=== PATIENT | female | born 1995 ===

== ENCOUNTER 2022-11-11 18:17 | Inpatient (IN) ==
[2022-11-11] MEDS ORDERED: ACETAMINOPHEN 325 MG TAB PO PRN (19:10)
[2022-11-11] MEDS ORDERED: ONDANSETRON 4 MG OD TAB PO PRN (19:10)
[2022-11-11] MEDS ORDERED: LACTATED RINGER'S 1,000 ML IV ONE (19:18)
[2022-11-11 19:46] LABS: Basophils # (auto) 0.05 K/uL (0-0.2); Basophils % (auto) 0.3 %; Eosinophils % (auto) 1.3 %; Hematocrit (blood only) 37.9 % (37.0-47.0); Hemoglobin 12.6 g/dl (12.0-16.0); Immature Granulocytes # (auto) 0.17 K/uL (0.01-0.20); Immature Granulocytes % (auto) 1.1 %; Lymphocytes % (auto) 17.3 %; Mean Corpuscular Hemoglobin 28.6 pg (25.0-34.0); Mean Corpuscular Hgb Conc 33.2 g/dL (32.0-36.0); Mean Corpuscular Volume 86.1 fL (80.0-100.0); Mean Platelet Volume 10.7 fL (9.4-12.4); Monocytes # (auto) 1.04 K/uL (0.11-0.59); Monocytes % (auto) 6.7 %; Neutrophils # (auto) 11.47 K/uL (1.40-6.50); Neutrophils % (auto) 73.3 %; Platelet Count 280 K/uL (130-400); RDW Coefficient of Variation 13.2 % (11.5-14.5); RDW Standard Deviation 41.6 fL (36.4-46.3); White Blood Count 15.63 K/ul (4.8-10.8)
[2022-11-11 20:14] LABS: Alanine Aminotransferase 19 U/L (7-52); Albumin Level 3.5 gm/dl (3.4-5.0); Alkaline Phosphatase 166 U/L (34-104); Anion Gap 9 (3-11); Aspartate Aminotransferase 18 U/L (13-39); BUN Creatinine Ratio 16.7 (10-20); Bilirubin,Total 0.8 mg/dl (0.2-1.0); Blood Urea Nitrogen 8 mg/dl (6-23); Calcium 9.1 mg/dl (8.5-10.1); Carbon Dioxide 21 mmol/L (21-32); Chloride 108 mmol/L (98-107); Creatinine Clr Calc Pharmacy 222.6 ml/min; Est GFR (African American) > 150.0 ml/min; Est GFR (Non-African American) 136.3 ml/min; Globulin 3.5 gm/dl (2.5-4.0); Glucose 86 mg/dl (70-99(Fasting)); Potassium 3.8 mmol/L (3.5-5.1); Sodium 138 mmol/L (136-145)
[2022-11-11] MEDS ORDERED: ONDANSETRON INJ 2 MG/ML 2 ML VIAL IV PRN (20:25)
--- NOTE | 2022-11-11 20:59 | Obstetrical Progress Note ---
Date of Service November 11, 2022 Subjective Patient is reevaluated. She received IV fluids, IV Zofran and p.o. Tylenol. Nausea is gone but she still has back pain off and on. She has a history of fast labors. Vital signs stable afebrile, Labs within normal limits, GBS was sent and pending, heart rate category 1, [place] showing contractions every 5 to 10 minutes, Vaginal exam, cervix is changed to 5 cm, 70% effaced, -2, tight bulging bag, Plan to admit, monitor, ambulate, and anticipate . Results & Data ([facility]) Vital Signs (Past 12 Hours) Vital Signs Temp Resp O2 Del Method 11/11/22 19:09 36.5 C 18 Room Air
--- NOTE | 2022-11-11 21:03 | History & Physical Report ---
Date of Service November 11, 2022 Assessment & Plan (1) Back pain affecting in third trimester: Plan: 27-year-old -1-1-2 at 39 weeks and 4 days of gestation with back pain, discomfort of , nausea vomiting and diarrhea since this morning, limited care at resource answer with one-time visit at [facility], Vital signs stable afebrile, GBS unknown, collected, Irregular uterine contractions most likely from dehydration, Obtain records with EDC of 11/14 and normal labs, Plan to observe, monitor, labs, IV fluids, Tylenol and Zofran and reevaluate, I offered her induction of labor tomorrow or 11/13 due to no nursing team a theresa tsang, Patient wants to think about it and decide. (2) Nausea and vomiting during : (3) Discomfort during : History of Present Illness Primary Care Provider: NO PCP Patient is a 27-year-old -1-1-2 at 39 weeks and 4 days of gestation who presented to ER for back pain, nausea vomiting and discomfort in abdomen and sent up here to labor and delivery. She is not from here, she went to resource center 3 times during this and she has not decided where to deliver this baby. She was thinking either the [facility] or here. She has been in [place] 2 to 3 days ago with similar complaints and and possible leakage of fluid and they told her she was not ruptured and they checked her cervix but has not informed her about her cervical dilatation. She decided not to go there and wanted to come here. We got her records from [facility] and her labs are within normal limits, GBS unknown, has not been seen since August 26, 2022. Her EDC was recorded as 11/14/2022. She has been feeling wet but no gush of fluid no trickling. She has back crampings as well as lower abdominal cramping. She vomited 3-4 times today and had diarrhea 3-4 times. Contractions are irregular and mild. Initially she declined Tylenol and Zofran but now she is excepting after discussion. Allergies Allergy/AdvReac Type Severity Reaction Status Date / Time No Known Allergies Allergy Verified 11/11/22 19:05 Home Medications Medication Instructions Recorded Confirmed Type famotidine 10 mg tablet 10 mg PO BID heartburn 11/11/22 11/11/22 History [id number] 1 mg 1 tab PO DAILY 11/11/22 11/11/22 History tablet Patient History Medical History Depression Marijuana use pt states nothing since the first month of Spontaneous 2008 Spontaneous vaginal delivery [place] - 11[place]01/2015 [facility] [place] [facility] [place]pt states was at the [facility] an water broke) -- thinks he was about 36ish weeks Social History Smoking Status: Never smoker Hx Alcohol Use: No Hx Substance Use: Yes Last Used Substance: Unknown Last Used Substance Other:: pt states used 1st month of then stopped Preferred Language: Icelandic marital status: Single Feels Safe at Home: Yes Safety Concerns: Feels Safe At This Time OB History Full-term in 2016 36-week delivery in 2017 Review of Systems as per Subjective / HPI Physical Exam Constitutional: WD/WN, vitals as above well developed, well nourished and + obese She seems uncomfortable but not in acute distress Gastrointestinal (Abdomen): normal bowel sounds, soft, nontender, no hepatosplenomegaly (Gravid) Genitourinary: normal external appearance Manual OB Exam: + cervical dilation 4 cm, + cervical effacement 50% and + station high (-3, posterior) OB Exam Monitor Tracing: + external uterine monitor used and + category I AmniSure negative, bedside ultrasound, vertex, GITA 16 cm Results & Data ([facility]) Vital Signs (Past 12 Hours) Vital Signs Temp Resp O2 Del Method 11/11/22 19:09 36.5 C 18 Room Air
[2022-11-11 21:35] LABS: Appearance Urine Clear (Clear); Bilirubin Urine Negative (Negative); Blood Urine Negative (Negative); Color Urine Dark Yellow; Glucose Urine UA Negative (Negative); Ketones Urine Negative (Negative); Leukocyte Esterase Urine Negative (Negative); Nitrite Urine Negative (Negative); Protein Urine Negative (Negative); Specific Gravity Urine 1.018 (1.000-1.030); Urobilinogen Urine Negative (Negative); pH Urine 6.5 (4.5-7.5)
[2022-11-11] MEDS ORDERED: PENICILLIN G POTASSIUM 6 MU in DEXTROSE 5% 250 ML IV STA (22:29)
[2022-11-11] MEDS ORDERED: OXYTOCIN 30 UNITS/500 ML BAG IV PRN (22:29)
[2022-11-11] MEDS ORDERED: LACTATED RINGER'S 1,000 ML IV PRN (22:29)
[2022-11-11] MEDS ORDERED: LIDOCAINE 1% LOCAL 20 ML VIAL INFIL PRN (22:29)
[2022-11-11 23:03] LABS: Amphetamines+Metham, Urine Neg (Neg); Barbiturates, Urine Neg (Neg); Benzodiazepine, Urine Neg (Neg); Cocaine, Urine Neg (Neg); MDMA (Ecstacy), Urine Neg (Neg); Methadone, Urine Neg (Neg); Opiate, Urine Neg (Neg); Phencyclidine, Urine Neg (Neg)
[2022-11-12] MEDS: PENICILLIN G POTASSIUM 3 MU in DEXTROSE 5% 100 ML IV PRN ×2 (02:31→06:32)
[2022-11-12] MEDS ORDERED: OXYTOCIN 30 UNITS/500 ML BAG IV PRN ×2 (02:57→11:18)
--- NOTE | 2022-11-12 02:57 | Obstetrical Progress Note ---
Date of Service November 12, 2022 Assessment & Plan Admission and Anticipated Discharge Date Admission Date: November 11, 2022 Subjective Patient is resting. She ambulated in hallway. Still has back pain but no regular contractions. FHR categ I Recommended augmentation with Oxytocin and she accepted. Plan to finish 2nd dose of PCN and start Oxytocin per protocol. Results & Data ([facility]) Vital Signs (Past 12 Hours) Vital Signs Temp Pulse Resp BP O2 Del Method 11/12/22 02:41 36.9 C 77 18 97/51 L 11/11/22 22:27 36.8 C 76 18 118/59 L 11/11/22 18:49 18 11/11/22 18:49 36.5 C 18 11/11/22 19:09 36.5 C 18 Room Air
--- NOTE | 2022-11-12 09:29 | Labor Progress Brief Note ---
Date of Service November 12, 2022 Assessment & Plan Admission and Anticipated Discharge Date Admission Date: November 11, 2022 Physical Exam Genitourinary: Manual OB Exam: + cervical dilation 5 cm, + cervical effacement 70%, + station -1 and + amniotic fluid clear OB Exam Monitor Tracing: + external FHT monitor used, + external uterine monitor used, + category I and + normal FHT variability AROM with Amni-hook clear fluid Results & Data ([facility]) Vital Signs (Past 12 Hours) Vital Signs Temp Pulse Resp BP 11/12/22 07:10 36.9 C 18 11/12/22 09:09 94 H 129/67 11/12/22 08:30 18 11/12/22 08:30 18 11/12/22 07:11 83 110/59 L 11/12/22 06:30 18 11/12/22 06:30 18 11/12/22 06:35 36.8 C 75 107/52 L 11/12/22 06:00 18 11/12/22 06:00 18 11/12/22 05:30 18 11/12/22 05:30 18 11/12/22 05:11 75 105/59 L 11/12/22 02:41 36.9 C 77 18 97/51 L 11/11/22 22:27 36.8 C 76 18 118/59 L
[2022-11-12] MEDS ORDERED: fentaNYL citrate 100 MCG/2 ML VIAL ONE (09:54)
[2022-11-12] MEDS ORDERED: LIDOCAINE 2%/EPINEPHRINE 1:200,000 20 ML SDV ONE (09:54)
[2022-11-12] MEDS ORDERED: SODIUM CHLORIDE 0.9% INJ 10 ML VIAL ONE (09:54)
[2022-11-12] MEDS ORDERED: BUPIVACAINE 0.25% 30 ML VIAL ONE (09:54)
[2022-11-12] MEDS ORDERED: ePHEDrine sulfate 50 MG/ML AMP ONE (09:54)
[2022-11-12] MEDS ORDERED: fentaNYL 2MCG/ML ROPIVACAINE 1.25MG/ML 100 ML BAG EPI ONE (09:55)
[2022-11-12] MEDS ORDERED: CALCIUM CARBONATE 500 MG CHEWABLE TAB PO PRN (10:08)
[2022-11-12] MEDS ORDERED: NALOXONE HCL 0.4 MG/1 ML VIAL/CARP IV PRN (10:20)
[2022-11-12] MEDS ORDERED: ONDANSETRON INJ 2 MG/ML 2 ML VIAL IV PRN (10:20)
[2022-11-12] MEDS ORDERED: NALOXONE HCL 1 MG in SODIUM CHLORIDE 0.9% 1000ML 1,000 ML IV PRN (10:20)
[2022-11-12] MEDS ORDERED: NALBUPHINE HCL INJ 10 MG/ML AMP IV PRN (10:20)
[2022-11-12] MEDS ORDERED: fentaNYL 2MCG/ML ROPIVACAINE 1.25MG/ML 100 ML BAG EPI PRN (10:20)
[2022-11-12] MEDS ORDERED: diphenhydrAMINE 50 MG/ML VIAL IV PRN (10:20)
[2022-11-12] MEDS ORDERED: ePHEDrine sulfate 50 MG/ML AMP IV PRN (10:20)
--- NOTE | 2022-11-12 10:21 | Anesthesiology Consultation ---
Date of Service November 12, 2022 Assessment & Plan (1) Encounter for pre-operative examination: Chart Review Chart Review: Patient NOT seen in Pre Admission Testing and Acceptable Risk for Labor Epidural Consults Requested none History Height/Weight Height: 5 ft 7 in Weight: 104.326 kg Allergies Allergy/AdvReac Type Severity Reaction Status Date / Time No Known Allergies Allergy Verified 11/11/22 19:05 Medications Home Medications Medication Instructions Recorded Confirmed Last Taken famotidine 10 mg tablet 10 mg PO BID heartburn 11/11/22 11/11/22 11/11/22 [id number] 1 mg 1 tab PO DAILY 11/11/22 11/11/22 11/11/22 tablet Active Medications Generic Name Dose Route Start Last Admin Trade Name Freq PRN Reason Stop Dose Admin Acetaminophen 650 mg 11/11/22 19:10 11/11/22 20:57 Acetaminophen 325 Mg Tab PO 12/11/22 19:09 650 mg Q4H PRN Administration Pain or Fever Calcium Carbonate 1,500 mg 11/12/22 10:08 11/12/22 10:14 Calcium Carbonate 500 Mg Chewable Tab PO 12/12/22 10:07 500 mg Q2HWA PRN Administration Indigestion Lactated Ringer's 1,000 mls @ 150 mls/hr 11/11/22 22:29 11/12/22 10:14 Lr IV 11/13/22 22:28 999 mls/hr .Q6H40M PRN Infusion L&D Protocol Protocol Penicillin G Potassium 3 mu/ 106 mls @ 100 mls/hr 11/12/22 01:33 11/12/22 07:30 Dextrose IV 11/22/22 01:32 Infused Q4H PRN Infusion GBS(+) Until Delivery Oxytocin 30 units in 500 mls @ 6 mls/hr 11/12/22 02:57 11/12/22 08:20 Pitocin IV 11/14/22 02:56 0.36 units/hr .Q24H PRN 6 mls/hr Labor Induction/Augmentation Titration Protocol 0.36 UNITS/HR Ondansetron HCl 4 mg 11/11/22 20:25 11/11/22 20:57 Ondansetron Inj 2 Mg/Ml 2 Ml Vial IV 12/11/22 20:24 4 mg Q4H PRN Administration Nausea Past Medical History Medical History Depression Marijuana use pt states nothing since the first month of Spontaneous 2009 Spontaneous vaginal delivery [place] - 11/01/2015 [facility] [place] [facility] [place] was [place] [facility] an water broke[place] -- thinks he was about 36ish weeks Exercise / Class Metabolic Activity II 4-5 Yardwork/Stairs/Walk up hill Past Anesthesia History No Hx of Anesthesia Complications and No Family Hx of Anesthesia Complications Social History Smoking Status: Never smoker Hx Alcohol Use: No Hx Substance Use: Yes substance use type: marijuana Last Used Substance: Unknown Last Used Substance Other:: pt states used 1st month of then stopped Physical Exam Vital Signs Last Vital Signs Temp 36.9 C 11/12/22 07:10 Pulse 93 H 11/12/22 10:42 Resp 18 11/12/22 08:30 BP 129/67 11/12/22 09:09 Pulse Ox 90 11/12/22 10:42 O2 Del Method 11/11/22 19:09 Testing Laboratory Results 11/11/22 19:30 11/11/22 19:30 Urine Color Dark Yellow 11/11/22 21:25 Urine Appearance Clear (Clear) 11/11/22 21:25 Urine pH 6.5 (4.5-7.5) 11/11/22 21:25 Ur Specific [place] 1.018 (1.000-1.030) 11/11/22 21:25 Urine Protein Negative (Negative) 11/11/22 21:25 Urine Glucose (UA) Negative (Negative) 11/11/22 21:25 Urine Ketones Negative (Negative) 11/11/22 21:25 Urine Nitrite Negative (Negative) 11/11/22 21:25 Ur Leukocyte Esterase Negative (Negative) 11/11/22 21:25 Blood Type O Positive 11/11/22 19:30 Antibody Screen NEGATIVE 11/11/22 19:30
[2022-11-12] MEDS ORDERED: IBUPROFEN 600 MG TAB PO ONE (11:01)
--- NOTE | 2022-11-12 11:04 | Delivery Summary ---
Vaginal Delivery Summary Date of Service November 12, 2022 Vaginal Delivery Summary Delivery Note live male ROSANNE over intact perineum with delayed cord clamping and Apgars 8/8 weight pending. Cord blood obtained followed by spontaneous delivery of intact placenta. EBL 150 ml. Final sponge and instrument count are correct. Mom and baby stable.
[2022-11-12] MEDS ORDERED: ACETAMINOPHEN 325 MG TAB PO PRN (11:10)
[2022-11-12] MEDS ORDERED: bisacodyL 10 MG SUPP PR PRN (11:10)
[2022-11-12] MEDS ORDERED: DIPHTHERIA/TETANUS/PERTUSSIS 0.5mL SYR/VIAL (Age 7+yrs) IM ONE (11:10)
[2022-11-12] MEDS ORDERED: HYDROCORTISONE ACETATE 25 MG SUPP PR PRN (11:10)
[2022-11-12] MEDS ORDERED: BENZOCAINE 20% AER SPR 82.5 GM CAN EXT PRN (11:10)
[2022-11-12] MEDS: IBUPROFEN 600 MG TAB PO PRN ×3 (15:02→23:11)
[2022-11-12] MEDS: DOCUSATE SODIUM 100 MG CAP PO SCH (21:06)
[2022-11-12] MEDS: FAMOTIDINE 10 MG TABLET PO SCH (21:06)
[2022-11-13] MEDS: IBUPROFEN 600 MG TAB PO PRN ×4 (03:30→20:14)
[2022-11-13 06:18] LABS: Hematocrit (blood only) 32.6 % (37.0-47.0); Hemoglobin 10.7 g/dl (12.0-16.0); Mean Corpuscular Hemoglobin 28.7 pg (25.0-34.0); Mean Corpuscular Hgb Conc 32.8 g/dL (32.0-36.0); Mean Corpuscular Volume 87.4 fL (80.0-100.0); Mean Platelet Volume 10.8 fL (9.4-12.4); Platelet Count 217 K/uL (130-400); RDW Coefficient of Variation 13.3 % (11.5-14.5); RDW Standard Deviation 42.4 fL (36.4-46.3); Red Blood Count 3.73 M/uL (4.20-5.40); White Blood Count 15.05 K/ul (4.8-10.8)
[2022-11-13] MEDS ORDERED: PRENATAL VITAMIN 1 TAB PO SCH (08:00)
[2022-11-13] MEDS: PRENATAL VITAMIN 1 TAB PO SCH (08:51)
[2022-11-13] MEDS: FAMOTIDINE 10 MG TABLET PO SCH ×2 (08:51→20:07)
[2022-11-13] MEDS: DOCUSATE SODIUM 100 MG CAP PO SCH ×2 (08:51→20:07)
--- NOTE | 2022-11-13 09:07 | Obstetrical Progress Note ---
Date of Service November 13, 2022 Assessment & Plan Admission and Anticipated Discharge Date Admission Date: November 11, 2022 Subjective Patient is seen and examined. She feels well, no complaints. Ambulating without dizziness Voiding without difficulty Tolerating regular diet with out N&V Bleeding is minimal No fever/ chills/ CP/ SOB/ N&V/ Leg pain Breast feeding without problems Vital Signs Temp Pulse Resp BP O2 Del Method 11/13/22 02:45 36.7 C 72 18 124/73 Room Air 11/12/22 23:31 36.6 C 69 18 114/70 Room Air Lab Results 11/11/22 11/11/22 11/11/22 Range/Units 19:30 19:30 19:30 WBC 15.63 H (4.8-10.8) K/ul RBC 4.40 (4.20-5.40) M/uL Hgb 12.6 (12.0-16.0) g/dl Hct 37.9 (37.0-47.0) % MCV 86.1 (80.0-100.0) fL MCH 28.6 (25.0-34.0) pg MCHC 33.2 (32.0-36.0) g/dL RDW Std Deviation 41.6 (36.4-46.3) fL RDW Coeff of Niru 13.2 (11.5-14.5) % Plt Count 280 (130-400) K/uL MPV 10.7 (9.4-12.4) fL Immature Gran % (Auto) 1.1 % Neut % (Auto) 73.3 % Lymph % (Auto) 17.3 % Bell % (Auto) 6.7 % Eos % (Auto) 1.3 % Baso % (Auto) 0.3 % Neut # (Auto) 11.47 H (1.40-6.50) K/uL Lymph # (Auto) 2.70 (1.2-3.4) K/uL Bell # (Auto) 1.04 H (0.11-0.59) K/uL Eos # (Auto) 0.20 (0-0.50) K/uL Baso # (Auto) 0.05 (0-0.2) K/uL Immature Gran # (Auto) 0.17 (0.01-0.20) K/uL Sodium 138 (136-145) mmol/L Potassium 3.8 (3.5-5.1) mmol/L Chloride 108 H (98-107) mmol/L Carbon Dioxide 21 (21-32) mmol/L Anion Gap 9 (3-11) BUN 8 (6-23) mg/dl Creatinine 0.48 L (0.6-1.2) mg/dl Est Cr Clr Drug Dosing 222.6 ml/min Est GFR ( Amer) > 150.0 ml/min Est GFR (Non-Af Amer) 136.3 ml/min BUN/Creatinine Ratio 16.7 (10-20) Glucose 86 (70-99(Fasting)) mg/dl Calcium 9.1 (8.5-10.1) mg/dl Total Bilirubin 0.8 (0.2-1.0) mg/dl AST 18 (13-39) U/L ALT 19 (7-52) U/L Alkaline Phosphatase 166 H (34-104) U/L Total Protein 7.0 (6.0-8.3) gm/dl Albumin 3.5 (3.4-5.0) gm/dl Globulin 3.5 (2.5-4.0) gm/dl Albumin/Globulin Ratio 1.0 (0.9-2) Urine Color Urine Appearance (Clear) Urine pH (4.5-7.5) Ur Specific [place] (1.000-1.030) Urine Protein (Negative) Urine Glucose (UA) (Negative) Urine Ketones (Negative) Urine Blood (Negative) Urine Nitrite (Negative) Urine Bilirubin (Negative) Urine Urobilinogen (Negative) Ur Leukocyte Esterase (Negative) Amniotic Protein Urine Opiates Screen (Neg) Ur Methadone, Qual (Neg) Urine Barbiturates (Neg) Ur Phencyclidine (PCP) (Neg) U Amphetamin/Meth Scrn (Neg) MDMA (Ecstasy) Screen (Neg) U Benzodiazepines Scrn (Neg) Ur Cocaine Metabolite (Neg) U Marijuana (THC) Screen (Neg) SARS-CoV-2, RNA, NAAT (NEGATIVE) Blood Type O Positive Antibody Screen NEGATIVE 11/11/22 11/11/22 11/11/22 Range/Units 21:04 21:25 22:26 WBC (4.8-10.8) K/ul RBC (4.20-5.40) M/uL Hgb (12.0-16.0) g/dl Hct (37.0-47.0) % MCV (80.0-100.0) fL MCH (25.0-34.0) pg MCHC (32.0-36.0) g/dL RDW Std Deviation (36.4-46.3) fL RDW Coeff of Niru (11.5-14.5) % Plt Count (130-400) K/uL MPV (9.4-12.4) fL Immature Gran % (Auto) % Neut % (Auto) % Lymph % (Auto) % [place] % (Auto) % Eos % (Auto) % Baso % (Auto) % Neut # (Auto) (1.40-6.50) K/uL Lymph # (Auto) (1.2-3.4) K/uL [place] # (Auto) (0.11-0.59) K/uL Eos # (Auto) (0-0.50) K/uL Baso # (Auto) (0-0.2) K/uL Immature Gran # (Auto) (0.01-0.20) K/uL Sodium (136-145) mmol/L Potassium (3.5-5.1) mmol/L Chloride (98-107) mmol/L Carbon Dioxide (21-32) mmol/L Anion Gap (3-11) BUN (6-23) mg/dl Creatinine (0.6-1.2) mg/dl Est Cr Clr Drug Dosing ml/min Est GFR ( Amer) ml/min Est GFR (Non-Af Amer) ml/min BUN/Creatinine Ratio (10-20) Glucose (70-99(Fasting)) mg/dl Calcium (8.5-10.1) mg/dl Total Bilirubin (0.2-1.0) mg/dl AST (13-39) U/L ALT (7-52) U/L Alkaline Phosphatase (34-104) U/L Total Protein (6.0-8.3) gm/dl Albumin (3.4-5.0) gm/dl Globulin (2.5-4.0) gm/dl Albumin/Globulin Ratio (0.9-2) Urine Color Dark Yellow Urine Appearance Clear (Clear) Urine pH 6.5 (4.5-7.5) Ur Specific [place] 1.018 (1.000-1.030) Urine Protein Negative (Negative) Urine Glucose (UA) Negative (Negative) Urine Ketones Negative (Negative) Urine Blood Negative (Negative) Urine Nitrite Negative (Negative) Urine Bilirubin Negative (Negative) Urine Urobilinogen Negative (Negative) Ur Leukocyte Esterase Negative (Negative) Amniotic Protein NEG Urine Opiates Screen (Neg) Ur Methadone, Qual (Neg) Urine Barbiturates (Neg) Ur Phencyclidine (PCP) (Neg) U Amphetamin/Meth Scrn (Neg) MDMA (Ecstasy) Screen (Neg) U Benzodiazepines Scrn (Neg) Ur Cocaine Metabolite (Neg) U Marijuana (THC) Screen (Neg) SARS-CoV-2, RNA, NAAT NEGATIVE (NEGATIVE) Blood Type Antibody Screen 11/11/22 11/13/22 Range/Units 22:38 05:53 WBC 15.05 H (4.8-10.8) K/ul RBC 3.73 L (4.20-5.40) M/uL Hgb 10.7 L (12.0-16.0) g/dl Hct 32.6 L (37.0-47.0) % MCV 87.4 (80.0-100.0) fL MCH 28.7 (25.0-34.0) pg MCHC 32.8 (32.0-36.0) g/dL RDW Std Deviation 42.4 (36.4-46.3) fL RDW Coeff of Niru 13.3 (11.5-14.5) % Plt Count 217 (130-400) K/uL MPV 10.8 (9.4-12.4) fL Immature Gran % (Auto) % Neut % (Auto) % Lymph % (Auto) % [place] % (Auto) % Eos % (Auto) % Baso % (Auto) % Neut # (Auto) (1.40-6.50) K/uL Lymph # (Auto) (1.2-3.4) K/uL [place] # (Auto) (0.11-0.59) K/uL Eos # (Auto) (0-0.50) K/uL Baso # (Auto) (0-0.2) K/uL Immature Gran # (Auto) (0.01-0.20) K/uL Sodium (136-145) mmol/L Potassium (3.5-5.1) mmol/L Chloride (98-107) mmol/L Carbon Dioxide (21-32) mmol/L Anion Gap (3-11) BUN (6-23) mg/dl Creatinine (0.6-1.2) mg/dl Est Cr Clr Drug Dosing ml/min Est GFR ( Amer) ml/min Est GFR (Non-Af Amer) ml/min BUN/Creatinine Ratio (10-20) Glucose (70-99(Fasting)) mg/dl Calcium (8.5-10.1) mg/dl Total Bilirubin (0.2-1.0) mg/dl AST (13-39) U/L ALT (7-52) U/L Alkaline Phosphatase (34-104) U/L Total Protein (6.0-8.3) gm/dl Albumin (3.4-5.0) gm/dl Globulin (2.5-4.0) gm/dl Albumin/Globulin Ratio (0.9-2) Urine Color Urine Appearance (Clear) Urine pH (4.5-7.5) Ur Specific [place] (1.000-1.030) Urine Protein (Negative) Urine Glucose (UA) (Negative) Urine Ketones (Negative) Urine Blood (Negative) Urine Nitrite (Negative) Urine Bilirubin (Negative) Urine Urobilinogen (Negative) Ur Leukocyte Esterase (Negative) Amniotic Protein Urine Opiates Screen Neg (Neg) Ur Methadone, Qual Neg (Neg) Urine Barbiturates Neg (Neg) Ur Phencyclidine (PCP) Neg (Neg) U Amphetamin/Meth Scrn Neg (Neg) MDMA (Ecstasy) Screen Neg (Neg) U Benzodiazepines Scrn Neg (Neg) Ur Cocaine Metabolite Neg (Neg) U Marijuana (THC) Screen Neg (Neg) SARS-CoV-2, RNA, NAAT (NEGATIVE) Blood Type Antibody Screen PE: General: Alert, orientedx3, NAD Abd: soft, NT, fundus firm, below Umbilicus Perineum intact, Lochia rubra minimal Ext; NT, no edema AP: 27 yo s/p , ppd# 1 VSS Afebrile doing well Continue routine care All questions were answered D/C home tomorrow Results & Data ([facility]) Vital Signs (Past 12 Hours) Vital Signs Temp Pulse Resp BP O2 Del Method 11/13/22 02:45 36.7 C 72 18 124/73 Room Air 11/12/22 23:31 36.6 C 69 18 114/70 Room Air
[2022-11-13] MEDS ORDERED: bisacodyL 5 MG TABEC PO SCH (20:00)
[2022-11-14 07:35] LABS: Hematocrit (blood only) 35.9 % (37.0-47.0); Hemoglobin 11.9 g/dl (12.0-16.0)
--- NOTE | 2022-11-14 08:40 | Obstetrical Progress Note ---
Date of Service November 14, 2022 Assessment & Plan (1) Normal course: Continue routine care Discharge home if baby is discharged today with follow-up in clinic Precautions given (2) Limited care: Subjective Ambulation: ambulating normally Voiding: no voiding problems Passing Gas:: Yes Diet Tolerance:: regular diet Lochia:: Small Feeding Type:: breast feeding Current Pain Level(1-10): 1 Patient doing well at this time, would like to be discharged home if possible today Currently breast/pumping feeding in addition to supplementing with formula No other concerns Physical Exam Constitutional WD/WN, vitals as above Respiratory normal respiratory effort, lungs clear to auscultation Cardiovascular RRR, no murmur, no edema Gastrointestinal (Abdomen) normal bowel sounds, soft, nontender, no hepatosplenomegaly Results & Data ([facility]) Vital Signs (Past 12 Hours) Vital Signs Temp Pulse Resp BP Pulse Ox O2 Del Method 11/13/22 23:19 36.4 C L 75 20 113/72 98 Room Air Laboratory Results Laboratory Results WBC 15.05 K/ul (4.8-10.8) H 11/13/22 05:53 RBC 3.73 M/uL (4.20-5.40) L 11/13/22 05:53 Hgb 11.9 g/dl (12.0-16.0) L 11/14/22 06:32 Hct 35.9 % (37.0-47.0) L 11/14/22 06:32 MCV 87.4 fL (80.0-100.0) 11/13/22 05:53 MCH 28.7 pg (25.0-34.0) 11/13/22 05:53 MCHC 32.8 g/dL (32.0-36.0) 11/13/22 05:53 RDW Std Deviation 42.4 fL (36.4-46.3) 11/13/22 05:53 RDW Coeff of Niru 13.3 % (11.5-14.5) 11/13/22 05:53 Plt Count 217 K/uL (130-400) 11/13/22 05:53 MPV 10.8 fL (9.4-12.4) 11/13/22 05:53 Immature Gran % (Auto) 1.1 % 11/11/22 19:30 Neut % (Auto) 73.3 % 11/11/22 19:30 Lymph % (Auto) 17.3 % 11/11/22 19:30 [place] % (Auto) 6.7 % 11/11/22 19:30 Eos % (Auto) 1.3 % 11/11/22 19:30 Baso % (Auto) 0.3 % 11/11/22 19:30 Neut # (Auto) 11.47 K/uL (1.40-6.50) H 11/11/22 19:30 Lymph # (Auto) 2.70 K/uL (1.2-3.4) 11/11/22 19:30 [place] # (Auto) 1.04 K/uL (0.11-0.59) H 11/11/22 19:30 Eos # (Auto) 0.20 K/uL (0-0.50) 11/11/22 19:30 Baso # (Auto) 0.05 K/uL (0-0.2) 11/11/22 19:30 Immature Gran # (Auto) 0.17 K/uL (0.01-0.20) 11/11/22 19:30 Sodium 138 mmol/L (136-145) 11/11/22 19:30 Potassium 3.8 mmol/L (3.5-5.1) 11/11/22 19:30 Chloride 108 mmol/L (98-107) H 11/11/22 19:30 Carbon Dioxide 21 mmol/L (21-32) 11/11/22 19:30 Anion Gap 9 (3-11) 11/11/22 19:30 BUN 8 mg/dl (6-23) 11/11/22 19:30 Creatinine 0.48 mg/dl (0.6-1.2) L 11/11/22 19:30 Est Cr Clr Drug Dosing 222.6 ml/min 11/11/22 19:30 Est GFR ( Amer) > 150.0 ml/min 11/11/22 19:30 Est GFR (Non-Af Amer) 136.3 ml/min 11/11/22 19:30 BUN/Creatinine Ratio 16.7 (10-20) 11/11/22 19:30 Glucose 86 mg/dl (70-99(Fasting)) 11/11/22 19:30 Calcium 9.1 mg/dl (8.5-10.1) 11/11/22 19:30 Total Bilirubin 0.8 mg/dl (0.2-1.0) 11/11/22 19:30 AST 18 U/L (13-39) 11/11/22 19:30 ALT 19 U/L (7-52) 11/11/22 19:30 Alkaline Phosphatase 166 U/L (34-104) H 11/11/22 19:30 Total Protein 7.0 gm/dl (6.0-8.3) 11/11/22 19:30 Albumin 3.5 gm/dl (3.4-5.0) 11/11/22 19:30 Globulin 3.5 gm/dl (2.5-4.0) 11/11/22 19:30 Albumin/Globulin Ratio 1.0 (0.9-2) 11/11/22 19:30 Urine Color Dark Yellow 11/11/22 21:25 Urine Appearance Clear (Clear) 11/11/22 21:25 Urine pH 6.5 (4.5-7.5) 11/11/22 21:25 Ur Specific [place] 1.018 (1.000-1.030) 11/11/22 21:25 Urine Protein Negative (Negative) 11/11/22 21:25 Urine Glucose (UA) Negative (Negative) 11/11/22 21:25 Urine Ketones Negative (Negative) 11/11/22 21:25 Urine Blood Negative (Negative) 11/11/22 21:25 Urine Nitrite Negative (Negative) 11/11/22 21:25 Urine Bilirubin Negative (Negative) 11/11/22 21:25 Urine Urobilinogen Negative (Negative) 11/11/22 21:25 Ur Leukocyte Esterase Negative (Negative) 11/11/22 21:25 Amniotic Protein NEG 11/11/22 21:04 Urine Opiates Screen Neg (Neg) 11/11/22 22:38 Ur Methadone, Qual Neg (Neg) 11/11/22 22:38 Urine Barbiturates Neg (Neg) 11/11/22 22:38 Ur Phencyclidine (PCP) Neg (Neg) 11/11/22 22:38 U Amphetamin/Meth Scrn Neg (Neg) 11/11/22 22:38 MDMA (Ecstasy) Screen Neg (Neg) 11/11/22 22:38 U Benzodiazepines Scrn Neg (Neg) 11/11/22 22:38 Ur Cocaine Metabolite Neg (Neg) 11/11/22 22:38 U Marijuana (THC) Screen Neg (Neg) 11/11/22 22:38 SARS-CoV-2, RNA, NAAT NEGATIVE (NEGATIVE) 11/11/22 22:26 Blood Type O Positive 11/11/22 19:30 Antibody Screen NEGATIVE 11/11/22 19:30
[2022-11-14] MEDS: IBUPROFEN 600 MG TAB PO PRN (08:56)
[2022-11-14] MEDS: PRENATAL VITAMIN 1 TAB PO SCH (08:56)
[2022-11-14] MEDS: DOCUSATE SODIUM 100 MG CAP PO SCH (08:56)
[2022-11-14] MEDS: FAMOTIDINE 10 MG TABLET PO SCH (08:58)
== END 2022-11-14 16:42 | disposition home or self-care (01) | DRG 807 ==
LOC: OPB 18:17 → 4S1 18:19 → 4E2 11-12 13:30